=== PATIENT | female | born 1985 | race Hispanic/Latino ===

== ENCOUNTER 2019-04-19 15:28 | Outpatient (CLI) | payer OTHER ==
--- NOTE | 2019-04-19 15:50 | ULT ---
TRANSABDOMINAL AND ENDOVAGINAL IMAGING OF THE PELVIS: HISTORY: Two months of left lower quadrant pain. COMPARISON: 05/05/2012. TECHNIQUE: Transabdominal and endovaginal imaging of the pelvis is performed. Ovaries are interrogated with jarvis scale imaging. : Uterus is identified, without evidence of a myometrial mass. Uterus measures 8.4 x 4.0 x 5.0 cm. Limited evaluation the endometrium. Suggests the endometrium is approximately 0.7 cm. Left and right ovaries have a normal echotexture. Right ovary measures 3.5 x 2.5 x 2.2 cm. Left ovary measures 2.0 x 1.9 x 2.8 cm. No significant fluid in the cul-de-sac. IMPRESSION: Unremarkable pelvic ultrasound. Transcribed Date/Time: 04/19/2019 3:54 PM
== END 2019-04-19 15:29 | disposition home or self-care (01) ==
LOC: BICULT 15:28
DX: R10.2 Pelvic and perineal pain (principal)
CPT/HCPCS: 76856

== ENCOUNTER 2019-10-09 13:22 | Outpatient (CLI) | payer OTHER ==
--- NOTE | 2019-10-09 15:03 | ULT ---
OB ULTRASOUND: 10/09/19 HISTORY: anatomy. FINDINGS: A single live intrauterine gestation is seen with measurements corresponding to an estimated gestatio nal age of 20 weeks, 4 days and MICHAEL t 02/22/20. The estimated eight measures 345 grams or 12 oz (2 percentile by Hadlock criteria). measurements are as follows: BPD 4.82 cm 20 weeks, 5 days HC 18.44 cm 20 weeks, 6 days AC 15.46 cm 20 weeks, 5 days FL 3.14 cm 19 weeks, 6 days heart rate measures 147 beats per minute. RADHA measures 12.8 cm. Placenta is anteriorly located without evidence of placenta previa. The cervical length measures 4.4 cm. A three vessel cord, cord insertion, kidneys, and bladder, stomach, lateral ventricles, cerebel lum, spine, upper and lower extremities are visualized and demonstrate no definite anomalies. The fou r chamber heart and lips/nose are not satisfactorily seen. IMPRESSION: Single live IUP of 20 weeks, 4 days estimated gestational age and MICHAEL at 02/22/20. POS: OZ
== END 2019-10-09 13:23 | disposition home or self-care (01) ==
LOC: BICULT 13:22
PROVIDERS: ATTEND Family Medicine
DX: Z34.02 Encounter for supervision of normal first pregnancy, second trimester (principal); Z3A.20 20 weeks gestation of pregnancy
CPT/HCPCS: 76805

== ENCOUNTER 2020-02-07 07:15 | Outpatient (CLI) | payer MEDICAID, OTHER ==
[2020-02-08 12:17] LABS: SARS-CoV-2 MS2 Positive; SARS-CoV-2 N Gene Positive; SARS-CoV-2 S Gene Positive; SARS-CoV-2 orf1ab Positive
== END 2020-02-07 07:16 | disposition home or self-care (01) ==
LOC: LABBT 07:15
PROVIDERS: ATTEND Family Medicine
DX: Z01.812 Encounter for preprocedural laboratory examination (principal); Z11.59 Encounter for screening for other viral diseases
CPT/HCPCS: 87635; U0003